=== PATIENT | male | born 1960 | race Caucasian/White ===

== ENCOUNTER 2017-02-17 09:42 | Emergency (ER) | payer MEDICAID ==
[2017-02-17] MEDS ORDERED: Ketorolac 30 MG/ML SDV IVPUSH ONE (10:29)
[2017-02-17] MEDS ORDERED: Ondansetron 4 MG/2 ML SDV IVPUSH ONE (10:29)
[2017-02-17] MEDS ORDERED: Morphine 4 MG/ML Syringe IVPUSH PRN (10:29)
[2017-02-17] MEDS ORDERED: Sodium Chloride 0.9% 1,000 ML IV ONE ×2 (10:29→11:37)
--- NOTE | 2017-02-17 10:30 | EDM.PDOC ---
ED HPI GENERAL MEDICAL PROBLEM - General Chief Complaint: Flank Pain Stated Complaint: RT SIDE PAIN Time Seen by Provider: 02/17/17 09:59 Source of Information: Reports: Patient History Limitations: Reports: No Limitations - History of Present Illness INITIAL COMMENTS - FREE TEXT/NARRATIVE: The patient is a 56-year-old male with a history of prior ureteral stones who presents with right-sided abdominal pain. He states that it started this morning. Pain is located in the front of his abdomen on the right side. It is constant. Sharp, severe, no relieving or exacerbating factors. Nauseated, no vomiting. He has had a few episodes of diarrhea this morning. No dysuria or hematuria. No fever. States that it does feel like a kidney stone to him. He has required specialist intervention for kidney stones in the past. Right Abdomen Pain Score (Numeric/FACES): 6 - Related Data Allergies Allergy/AdvReac Type Severity Reaction Status Date / Time No Known Allergies Allergy Verified 02/17/17 09:52 Home Meds: Home Meds Lisinopril 20 mg PO DAILY 02/12/15 [History] Atenolol [Tenormin] 100 mg PO DAILY 02/17/17 [History] Hydrochlorothiazide 12.5 mg PO DAILY 02/17/17 [History] Ondansetron [Zofran ODT] 4 mg PO Q4H PRN #20 tab.dis 02/17/17 [Rx] Tamsulosin [Flomax] 0.4 mg PO PCBREAKFAST #30 cap.er 02/17/17 [Rx] oxyCODONE HCl/Acetaminophen [Percocet 5-325 mg Tablet] 1 each PO QID PRN #20 tablet 02/17/17 [Rx] Past Medical History Cardiovascular History: Reports: Hypertension Gastrointestinal History: Reports: Helicobacter Pylori Other Gastrointestinal History: Hpylori in October 2014 Genitourinary History: Reports: Renal Calculus Other Genitourinary History: stent Other Hematologic History: Pt states unable to have renal stone removed in January because blood was too thin according to doctors Other Immunologic History: Hep C - Past Surgical History Male Surgical History: Reports: Lithotripsy ([facility]) Social & Family History - Tobacco Use Smoking Status *Q: Former Smoker Years of Tobacco use: 30 Month Tobacco Last Used: 13 yrs Second Hand Smoke Exposure: Yes - Alcohol Use Days Per Week of Alcohol Use: 0 - Recreational Drug Use Recreational Drug Use: No ED ROS GENERAL - Review of Systems Review Of Systems: See Below Constitutional: Denies: Fever HEENT: Reports: No Symptoms Respiratory: Denies: Shortness of Breath Cardiovascular: Reports: No Symptoms Endocrine: Reports: No Symptoms GI/Abdominal: Reports: Abdominal Pain : Reports: Flank Pain. Denies: Dysuria, Hematuria Musculoskeletal: Reports: No Symptoms Skin: Reports: No Symptoms Neurological: Reports: No Symptoms Psychiatric: Reports: No Symptoms Hematologic/Lymphatic: Reports: No Symptoms Immunologic: Reports: No Symptoms ED EXAM, RENAL/ - Physical Exam Exam: See Below Exam Limited By: No Limitations General Appearance: Alert, WD/WN, No Apparent Distress Ears: Normal External Exam Nose: Normal Inspection, Normal Mucosa, No Blood Throat/Mouth: Normal Inspection, Normal Voice, No Airway Compromise Head: Atraumatic, Normocephalic Neck: Normal Inspection, Supple, Non-Tender, Full Range of Motion Respiratory/Chest: No Respiratory Distress, Lungs Clear, Normal Breath Sounds, Chest Non-Tender Cardiovascular: Normal Peripheral Pulses, Regular Rate, Rhythm, No Murmur GI/Abdominal: Soft, No Distention, Other (Right upper quadrant and right lower quadrant tenderness, no rebound or guarding). No: Guarding Back Exam: CVA Tenderness (R). No: CVA Tenderness (L) Extremities: Normal Inspection Neurological: Alert, Oriented, Normal Cognition, No Motor/Sensory Deficits Psychiatric: Normal Affect, Normal Mood Skin Exam: Warm, Dry, Intact, Normal Color, No Rash Course - Vital Signs Last Recorded V/S: Last Vital Signs Temp 36.4 C 02/17/17 09:49 Pulse 55 L 02/17/17 11:19 Resp 13 02/17/17 11:19 BP 128/73 02/17/17 11:19 Pulse Ox 100 02/17/17 11:19 - Orders/Labs/Meds Labs: Laboratory Tests 02/17/17 02/17/17 02/17/17 Range/Units 10:05 10:05 10:45 WBC 8.60 (4.23-9.07) K/mm3 RBC 5.02 (4.63-6.08) M/mm3 Hgb 15.5 (13.7-17.5) gm/L Hct 44.0 (40.1-51.0) % MCV 87.6 (79.0-92.2) fl MCH 30.9 (25.7-32.2) pg MCHC 35.2 (32.2-35.5) g/dl RDW Std Deviation 40.6 (35.1-43.9) fL Plt Count 176 (163-337) K/mm3 MPV 10.4 (9.4-12.3) fl Neut % (Auto) 80.0 H (34.0-67.9) % Lymph % (Auto) 11.9 L (21.8-53.1) % Leon % (Auto) 6.5 (5.3-12.2) % Eos % (Auto) 1.4 (0.8-7.0) Baso % (Auto) 0.1 (0.1-1.2) % Neut # (Auto) 6.88 H (1.78-5.38) K/mm3 Lymph # (Auto) 1.02 L (1.32-3.57) K/mm3 Leon # (Auto) 0.56 (0.30-0.82) K/mm3 Eos # (Auto) 0.12 (0.04-0.54) K/mm3 Baso # (Auto) 0.01 (0.01-0.08) K/mm3 Sodium 138 (136-145) mEq/L Potassium 4.2 (3.5-5.1) mEq/L Chloride 100 (98-107) mEq/L Carbon Dioxide 31 (21-32) mEq/L Anion Gap 11.2 (5-15) BUN 16 (7-18) mg/dL Creatinine 1.1 (0.7-1.3) mg/dL Est Cr Clr Drug Dosing 66.06 mL/min Estimated GFR (MDRD) > 60 (>60) mL/min BUN/Creatinine Ratio 14.5 (14-18) Glucose 118 H (74-106) mg/dL Calcium 9.7 (8.5-10.1) mg/dL Total Bilirubin 0.5 (0.2-1.0) mg/dL AST 28 (15-37) U/L ALT 26 (16-63) U/L Alkaline Phosphatase 68 (46-116) U/L Total Protein 8.1 (6.4-8.2) g/dl Albumin 4.3 (3.4-5.0) g/dl Globulin 3.8 gm/dL Albumin/Globulin Ratio 1.1 (1-2) Lipase 201 (73-393) U/L Urine Color Yellow (Yellow) Urine Appearance Clear (Clear) Urine pH 7.0 (5.0-8.0) Ur Specific [place] > or = 1.030 (1.005-1.030) Urine Protein 2+ H (Negative) Urine Glucose (UA) Negative (Negative) Urine Ketones Negative (Negative) Urine Occult Blood 2+ H (Negative) Urine Nitrite Negative (Negative) Urine Bilirubin Negative (Negative) Urine Urobilinogen 0.2 (0.2-1.0) Ur Leukocyte Esterase Negative (Negative) Urine RBC 10-20 H (0-5) /hpf Urine WBC 0-5 (0-5) /hpf Ur Epithelial Cells 0-5 (0-5) /hpf Urine Bacteria Not seen (FEW) /hpf Urine Mucus Not seen (FEW) /hpf Meds: Medications Discontinued Medications Generic Name Dose Route Start Last Admin Trade Name Freq PRN Reason Stop Dose Admin Sodium Chloride 1,000 mls @ 1,000 mls/hr 02/17/17 10:29 02/17/17 10:45 Normal Saline IV 02/17/17 11:28 1,000 mls/hr ONETIME ONE Administration Sodium Chloride 1,000 mls @ 1,000 mls/hr 02/17/17 11:37 02/17/17 11:49 Normal Saline IV 02/17/17 12:36 1,000 mls/hr ONETIME ONE Administration Ketorolac Tromethamine 30 mg 02/17/17 10:29 02/17/17 10:48 Toradol IVPUSH 02/17/17 10:30 30 mg ONETIME ONE Administration Morphine Sulfate 4 mg 02/17/17 10:29 02/17/17 10:47 Morphine IVPUSH 4 mg Q2H PRN Administration Pain Ondansetron HCl 4 mg 02/17/17 10:29 02/17/17 10:46 Zofran IVPUSH 02/17/17 10:30 4 mg ONETIME ONE Administration Oxycodone/Acetaminophen 1 tab 02/17/17 13:41 02/17/17 13:50 Percocet 325-5 Mg PO 02/17/17 13:42 1 tab ONETIME ONE Administration - Re-Assessments/Exams Free Text/Narrative Re-Assessment/Exam: 02/17/17 13:41 Labs show microscopic hematuria, otherwise unremarkable. CT scan shows an obstructing 8.6 mm stone in the distal right ureter approximately 1 cm proximal to the UVJ. Patient feels much better after pain medications and fluids. Discussed diagnosis. He has required urology intervention in the past for stones. He has a urologist in [place]. He will follow-up with his urologist in [place] as soon as possible. Discussed symptoms control and return precautions, patient understood. Departure - Departure Time of Disposition: 13:42 Disposition: Home, Self-Care 01 Clinical Impression: Ureteral stone with hydronephrosis - Discharge Information Prescriptions: Ondansetron [Zofran ODT] 4 mg PO Q4H PRN #20 tab.dis PRN Reason: Nausea Tamsulosin [Flomax] 0.4 mg PO PCBREAKFAST #30 cap.er oxyCODONE HCl/Acetaminophen [Percocet 5-325 mg Tablet] 1 each PO QID PRN #20 tablet PRN Reason: Pain Instructions: Kidney Stones, [id number] Referrals: Joseph Hilario MD [Primary Care Provider] - Forms: ED Department Discharge Additional Instructions: 1. Follow up with your urologist as soon as possible. You have a stone measuring 8.6 mm that is close to passing but may be too large to pass on it's own. 2. Take tamsulosin as prescribed. Take percocet as prescribed for pain. Drink plenty of fluids 3. Return to the ED if you have worsening pain, vomiting, fever, or other concerning symptoms
[2017-02-17 11:20] VITALS: BP 128/73
--- NOTE | 2017-02-17 12:56 | CT ---
CT abdomen and pelvis Technique: Multiple axial sections were obtained from above the dome of the diaphragm inferiorly through the pubic symphysis. Intravenous and oral contrast not utilized. Study has been performed as a ureteral stone protocol. Findings: Dilated right renal pelvis and ureter are seen. Inflammatory change is noted around the right kidney and around the right renal pelvis. These findings are due to an obstructing stone within the distal right ureter measuring about 8.6 mm. This stone occurs approximately 1 cm from the UVJ. No other abnormal calcifications are seen within the ureters. Small nonobstructing stone is noted within the right renal pelvis measuring 4 mm. Small nonobstructing stone is noted within the right kidney measuring 2 mm. Small nonobstructing stone noted within the left kidney measuring 4.8 mm. Visualized lung bases are clear. Noncontrast appearance of the liver and spleen appear within normal limits. Adrenal glands show no nodule. Pancreas is within normal limits. Gallbladder shows no calcified gallstones. Aorta shows no aneurysmal dilatation. Appendix is seen and appears normal. No pelvic mass or adenopathy is seen. Bone window settings were reviewed which shows degenerative change within the lower lumbar spine. Impression: 1. Bilateral nonobstructing renal calculi. 2. Dilated right renal pelvis and right ureter. Inflammatory change around the right kidney and right renal pelvis. These findings are caused by an 8.6 mm obstructing stone within the distal right ureter occurring approximately 1 cm proximal to the UVJ. 3. Other incidental findings as described above. Diagnostic code #3
[2017-02-17] MEDS ORDERED: Acetaminophen/oxyCODONE 325-5 MG Tab PO ONE (13:41)
== END 2017-02-17 14:00 | disposition home or self-care (01) ==
LOC: JD.ED 09:42
DX: N13.2 Hydronephrosis with renal and ureteral calculous obstruction (principal); I10 Essential (primary) hypertension; Z98.890 Other specified postprocedural states; Z87.891 Personal history of nicotine dependence; Z79.899 Other long term (current) drug therapy
CPT/HCPCS: 36415; 74176; 80053; 81001; 83690; 85025; 96361; 96374; 96375; 99284; A9270; J1885; J2270; J2405; J7040